=== PATIENT | male | born 1945 | race Caucasian/White ===

== ENCOUNTER 2018-02-03 07:44 | Day surgery (SDC) | payer OTHER ==
[2018-01-30 15:22] LABS: Absolute Lymphocytes (CBC) 0.9 K/uL (0.7-4.9); Absolute Monocytes 0.4 K/uL (0.1-1.3); Absolute Neutrophil 3.3 K/uL (1.8-8.0); Basophils % 1.2 % (0-1.3); Eosinophils % 3.3 % (0-4.4); Hematocrit 45.7 % (39.6-49.0); MCH 30.7 pg (27.0-35.0); MCV 89.7 fL (80-100); MPV 8.1 fL (7.6-11.3); RBC Red Blood Cell Count 5.09 M/uL (4.33-5.43)
--- NOTE | 2018-01-30 15:23 | RAD REPORT ---
EXAM DESCRIPTION: RADOP - Outpt Chest Pa/Lat (2 Views) - 01/30/2018 3:15 pm CLINICAL HISTORY: Hypertension COMPARISON: None. FINDINGS: The lungs are mildly emphysematous but clear. The heart is upper limit normal in size. No displaced fractures. Thoracic spondylosis is present. IMPRESSION: Mild COPD.
[2018-01-30 15:46] LABS: Potassium 4.3 mEq/L (3.6-5.0)
--- NOTE | 2018-01-30 16:40 | EKG ---
Test Date: 2018-01-30 Test Time: 15:04:58 Wash And Greaser: MARIS MEASUREMENT RESULTS: Intervals: Rate: 55 CA: 158 QRSD: 92 QT: 402 QTc: 384 [place]: P: 39 CA: 158 QRS: -10 T: 11 INTERPRETIVE STATEMENTS: Sinus bradycardia Otherwise normal ECG No previous ECG available for comparison Electronically Signed On 01-30-18 16:39:28 CDT by Giovanni Llamas
[2018-02-03] MEDS ORDERED: Ringers Lactate 1,000 ML IV ONE (09:05)
[2018-02-03] MEDS ORDERED: CEFAZOLIN/SWI 1gm 1 GM/10 ML SYR ONE (09:06)
[2018-02-03] MEDS ORDERED: PROPOFOL 200 MG/20 ML VIAL IV ONE (09:28)
[2018-02-03] MEDS ORDERED: GLYCOPYRROLATE 0.2 MG/ML SYR ONE ×2 (09:28→10:32)
[2018-02-03] MEDS ORDERED: ROCURONIUM 50 MG/5 ML VIAL IV ONE (09:29)
[2018-02-03] MEDS ORDERED: LIDOCAINE 2% MPF 5 ML VIAL ONE (09:29)
[2018-02-03] MEDS ORDERED: ONDANSETRON 4 MG/2 ML VIAL ONE (09:29)
[2018-02-03] MEDS ORDERED: FENTANYL CITR 100 MCG/2 ML ONE (09:30)
[2018-02-03] MEDS ORDERED: NEOSTIGMINE 1 MG/ML -5 ML SYRINGE ONE (09:31)
[2018-02-03] MEDS ORDERED: EPHEDRINE SULF 50 MG/5 ML SYR ONE (10:32)
--- NOTE | 2018-02-03 11:24 | P.BOP ---
Preoperative diagnosis: Right incarcerated tender inguinal hernia Postoperative diagnosis: same Primary procedure: Open repair of Right incarcerated tender inguinal hernia with mesh Harness And Bag Inspector: Renetta Bianchi (Daniel) Estimated blood loss: <10cc Specimen: hernia sac, omentum Findings: incarcerated omentum over inguinal hernia Anesthesia: General Complications: None Implants: mesh plug and sheet Transferred to: Recovery Room Condition: Good
[2018-02-03] MEDS: MEPERIDINE HCL 50 MG/ML AMP ONE ×2 (11:33→11:38)
[2018-02-03] MEDS ORDERED: CODEINE 30MG/APAP 300MG TAB ONE (12:54)
[2018-02-03] MEDS ORDERED: HYDROCODONE/APAP 10/325 TAB ONE (13:34)
--- NOTE | 2018-02-03 23:16 | DS ---
Date of Discharge: 02/03/2018 Diagnosis: Incarcerated right inguinal hernia tender. Procedure: Open repair of tender right incarcerated inguinal hernia with mesh. Disposition: Home. Activity: As tolerated. No heavy lifting. Follow up in my office in 1 week. Call for appointment at [phone]. Keep area dry for 48 hours, then may shower. Medications: Include Tylenol #3 q.4 hours p.r.n. pain and Bactrim DS p.o. b.i.d. HARRISON/NELLA Voice ID: [id number] Report ID: [id number]
--- NOTE | 2018-02-03 23:40 | OP ---
Date of Procedure: 02/03/2018 Surgeon: Rashaad Walker MD Elevator Service Mechanic: WANG Adrian. Preoperative Diagnosis: Right incarcerated tender inguinal hernia. Postoperative Diagnosis: Right incarcerated tender inguinal hernia. Procedure: Open repair of right inguinal hernia incarcerated with the use of mesh. Estimated Blood Loss: Less than 10 cc. Specimen: Hernia sac and omentum. Findings: Incarcerated omentum over inguinal hernia. Implant: Mesh sheet and plug. Indications: This is the case of a 72-year-old patient, who comes to us with a large hernia on the r ight inguinal region with tenderness. The patient fully explained the need for repair with benefits, alternatives, and risks including but not limited to infection, bleeding, damage to adjacent structu res, anesthesia complication, recurrence, GA, and even . He also understands the chance of plastic eye technician lino pain, chronic numbness, also understands that we are going to be using most likely mesh in that r egion with the pros and cons fully explained to the patient, allowed to ask questions and answered to his satisfaction. The patient signed a consent. Description Of Procedure: The patient was brought to the operating room, placed in supine position. Anesthesia was done without complication. Abdominal and right inguinal region were prepped and drap ed in sterile fashion. A time-out was called. Incision was made over the right inguinal region. In cision was carried down to Ora's fascia until we found external oblique aponeurosis that was opene d in the direction of its fibers. This opening was connected to the superficial inguinal ring. Ilio inguinal nerve and iliohypogastric nerve were identified and protected behind external oblique aponeu rosis. Uvaldo was placed around the spermatic cord. We open the cremasteric fibers and visualized the hernia sac and also a large lipoma of the cord. The hernia sac was carefully removed from the sp ermatic cord making sure the vas deferens and the rest of the structures were left intact. The herni a sac was opened. We noticed incarcerated omentum. Some of them have to be removed and suture ligat ed with 0 chromic and the rest reduced back in the abdominal cavity after making sure I inspected wit h full hemostasis. The hernia sac was then twisted, suture ligated with 2-0 Prolene. A lipoma of th e cord was also suture ligated with a 0 chromic. At that moment, I proceeded to put a mesh plug in t he deep inguinal ring, secured in place with VersaTack. Once again, the spermatic cord structure wer e protected. Then, the mesh sheath was placed in the floor of the canal securing that to the pubic t ubercle, shelving edge of the inguinal ligament, transversalis fascia, and the tails looped around th e spermatic cord without strangulation. The area was irrigated. No bleeding. The ilioinguinal nerv e and iliohypogastric nerve brought back into the inguinal canal. The superficial inguinal ring was reconstructed and external oblique aponeurosis was closed without including the nerve. The area was irrigated. Ora's fascia closed with 3-0 chromic and skin with sheryl. Sponge count and instrume nt counts were correct at the end of the case. Testicles were in the scrotum. The patient sent to r ecovery room in stable condition. Sponge count and instrument counts were correct. HARRISON/NELLA Voice ID: [id number] Report ID: [id number]
== END 2018-02-03 14:15 | disposition home or self-care (01) ==
LOC: OR 07:44
PROVIDERS: ATTEND Surgery
PROC: 0YU50JZ Supplement Right Inguinal Region with Synthetic Substitute, Open Approach (ICD-10-PCS; principal; 2018-02-03 10:15)
DX: K40.30 Unilateral inguinal hernia, with obstruction, without gangrene, not specified as recurrent (principal); I10 Essential (primary) hypertension
CPT/HCPCS: 36415; 49507; 71046; 80048; 85025; 88302; 93005; J0690; J2175; J2405; J2710; J3010; 88305